=== PATIENT | male | born 1960 | race Caucasian/White ===

== ENCOUNTER 2018-01-03 09:57 | Inpatient (IN) | payer OTHER ==
[~2018-01-03] VITALS: Ht 180.3 cm; Wt 101.4 kg
[2018-01-03 10:36] LABS: BASOPHILS # (AUTO) 0.02 x10^3/uL (0-0.1); BASOPHILS % (AUTO) 0 % (0-1); EOSINOPHILS % (AUTO) 0 % (1-7); LYMPHOCYTES # (AUTO) 1.17 x10^3/uL (1-3.4); LYMPHOCYTES % (AUTO) 17 % (22-44); MD NO; MEAN CORPUSCULAR HEMOGLOBIN 30.3 pg (27.5-34.5); MEAN CORPUSCULAR HGB CONC 33.8 g/dL (33.2-36.2); MEAN CORPUSCULAR VOLUME 89.8 fL (81-97); MEAN PLATELET VOLUME 7.9 fL (7.4-10.4); MONOCYTES % (AUTO) 3 % (2-9); NEUTROPHILS # (AUTO) 5.33 x10^3/uL (1.8-6.8); NEUTROPHILS % (AUTO) 79 % (42-75); PLATELET COUNT 173 x10^3/uL (130-400); RED BLOOD COUNT 5.09 x10^6/uL (4.38-5.82); RED CELL DISTRIBUTION WIDTH 14.4 % (9.4-14.8)
[2018-01-03 10:49] LABS: ALBUMIN 2.8 g/dL (3.4-5.0); ANION GAP 14 mmol/L (5-15); CALCIUM 8.3 mg/dL (8.5-10.1); CHLORIDE 97 mmol/L (98-107)
[2018-01-03 10:52] LABS: ALANINE AMINOTRANSFERASE 29 U/L (12-78); ALKALINE PHOSPHATASE 166 U/L (45-117); BILIRUBIN,TOTAL 0.7 mg/dL (0.2-1.0); CREATININE 0.85 mg/dL (0.7-1.3)
[2018-01-03] MEDS ORDERED: SODIUM CHLORIDE 0.9% 1,000ML IVBOLUS ONE (11:30)
[2018-01-03] MEDS ORDERED: CEFTRIAXONE PMX 1GM/50ML 50 ML IVPB ONE (11:30)
[2018-01-03] MEDS ORDERED: CEFTRIAXONE PMX 1GM/50ML 50 ML ONE (11:53)
[2018-01-03 11:59] LABS: MICROSCOPIC INDICATED
[2018-01-03 12:01] LABS: CULTURE INDICATED? NO
[2018-01-03] MEDS ORDERED: ONDANSETRON 2MG/ML, 2ML IVPush PRN (12:30)
[2018-01-03] MEDS ORDERED: DOCUSATE 100 MG CAPSULE PO PRN (12:30)
[2018-01-03] MEDS ORDERED: DEXTROSE 50%, 50ML SYRINGE IVPush PRN (12:30)
[2018-01-03] MEDS ORDERED: BISACODYL 10 MG SUPP PR PRN (12:30)
[2018-01-03] MEDS ORDERED: ENALAPRILAT 1.25 MG/ML, 2ML IVPush PRN (12:30)
[2018-01-03] MEDS ORDERED: GLUCAGON 1 MG IM PRN (12:30)
[2018-01-03] MEDS ORDERED: DEXTROSE 4 GM TAB.CHEW PO PRN (12:30)
[2018-01-03] MEDS ORDERED: POLYETHYLENE GLYCOL 17 GM PACKET PO PRN (12:30)
[2018-01-03 13:00] VITALS: BP 126/76
[2018-01-03 13:02] LABS: HEMOGLOBIN A1C 13.9 % (4.2-6.3)
[2018-01-03] MEDS: NS + 20MEQ KCL 1,000 ML IV SCH (13:36)
[2018-01-03] MEDS: CEFTRIAXONE PMX 1GM/50ML 50 ML IV SCH (13:37)
[2018-01-03] MEDS: ENOXAPARIN 40 MG/0.4 ML SQ SCH (14:00)
[2018-01-03] MEDS: DOXYCYCLINE 100 MG in DEXTROSE 5% 250 ML IV SCH (14:27)
[2018-01-03 15:29] VITALS: BP 126/76
[2018-01-03] MEDS: ACETAMINOPHEN 325 MG TABLET PO PRN (15:55)
[2018-01-03 16:28] LABS: RAPID INFLUENZA A Negative (Negative); RAPID INFLUENZA B Negative (Negative)
[2018-01-03] MEDS: INSULIN LISPRO 100 UNITS/ML, PEN SQ-INSULIN SCH ×2 (16:33→21:31)
[2018-01-03 18:40] VITALS: BP 118/65
[2018-01-03] MEDS: SODIUM CHLORIDE FLUSH 10ML SYR IVF SCH (21:30)
[2018-01-04] MEDS: DOXYCYCLINE 100 MG in DEXTROSE 5% 250 ML IV SCH ×2 (00:54→12:44)
[2018-01-04] MEDS: ACETAMINOPHEN 325 MG TABLET PO PRN (00:55)
[2018-01-04] MEDS: NS + 20MEQ KCL 1,000 ML IV SCH (00:59)
[2018-01-04 01:04] VITALS: BP 126/67
[2018-01-04] MEDS ORDERED: GUAIFENESIN 100 MG/5 ML, 10ML UDC ONE (01:33)
[2018-01-04] MEDS: GUAIFENESIN 100 MG/5 ML, 5ML UDC PO PRN ×2 (01:36→20:37)
[2018-01-04 06:15] LABS: ANION GAP 10 mmol/L (5-15); CALCIUM 7.9 mg/dL (8.5-10.1); CHLORIDE 101 mmol/L (98-107)
[2018-01-04 06:18] LABS: CREATININE 0.66 mg/dL (0.7-1.3)
[2018-01-04 07:57] VITALS: BP 116/69
[2018-01-04] MEDS: POTASSIUM CHLORIDE 20 MEQ TAB.ER.PRT PO SCH ×2 (08:10→17:25)
[2018-01-04] MEDS: INSULIN LISPRO 100 UNITS/ML, PEN SQ-INSULIN SCH ×4 (08:13→20:37)
[2018-01-04] MEDS: SODIUM CHLORIDE FLUSH 10ML SYR IVF SCH ×2 (08:16→20:38)
[2018-01-04] MEDS ORDERED: PNEUMOCOCCAL 23 VACCINE IM-VACC ONE (14:00)
[2018-01-04] MEDS ORDERED: FLU VACC QS2017-18 (36MOS+) UP/PF 0.5 ML IM-VACC ONE (14:00)
[2018-01-04] MEDS: CEFTRIAXONE PMX 1GM/50ML 50 ML IV SCH (14:12)
[2018-01-04] MEDS: ENOXAPARIN 40 MG/0.4 ML SQ SCH (14:19)
[2018-01-04 17:05] VITALS: BP 125/68
[2018-01-04] MEDS ORDERED: INSULIN GLARGINE 100 UNITS/ML, PEN SQ-INSULIN SCH (21:00)
[2018-01-04 21:08] VITALS: BP 128/81
[2018-01-05] MEDS: DOXYCYCLINE 100 MG in DEXTROSE 5% 250 ML IV SCH ×2 (00:49→12:30)
[2018-01-05 02:15] VITALS: BP 115/76
[2018-01-05] MEDS ORDERED: GUAIFENESIN 100 MG/5 ML, 10ML UDC ONE ×2 (05:58→12:12)
[2018-01-05] MEDS: GUAIFENESIN 100 MG/5 ML, 5ML UDC PO PRN (06:00)
[2018-01-05 06:04] LABS: ANION GAP 11 mmol/L (5-15); CALCIUM 7.9 mg/dL (8.5-10.1); CHLORIDE 104 mmol/L (98-107)
[2018-01-05 06:05] LABS: CREATININE 0.58 mg/dL (0.7-1.3)
[2018-01-05 06:18] LABS: BASOPHILS # (AUTO) 0.03 x10^3/uL (0-0.1); BASOPHILS % (AUTO) 1 % (0-1); EOSINOPHILS # (AUTO) 0.01 x10^3/uL (0-0.4); EOSINOPHILS % (AUTO) 0 % (1-7); LYMPHOCYTES % (AUTO) 32 % (22-44); MD NO; MEAN CORPUSCULAR HEMOGLOBIN 30.3 pg (27.5-34.5); MEAN CORPUSCULAR HGB CONC 33.6 g/dL (33.2-36.2); MEAN CORPUSCULAR VOLUME 90.3 fL (81-97); MONOCYTES # (AUTO) 0.57 x10^3/uL (0.2-0.8); MONOCYTES % (AUTO) 11 % (2-9); NEUTROPHILS # (AUTO) 2.81 x10^3/uL (1.8-6.8); NEUTROPHILS % (AUTO) 56 % (42-75); PLATELET COUNT 220 x10^3/uL (130-400); RED BLOOD COUNT 4.66 x10^6/uL (4.38-5.82); RED CELL DISTRIBUTION WIDTH 14.6 % (9.4-14.8)
[2018-01-05 08:00] VITALS: BP 114/70
[2018-01-05] MEDS: INSULIN LISPRO 100 UNITS/ML, PEN SQ-INSULIN SCH ×4 (08:34→20:13)
[2018-01-05] MEDS: POTASSIUM CHLORIDE 20 MEQ TAB.ER.PRT PO SCH (08:37)
[2018-01-05] MEDS: SODIUM CHLORIDE FLUSH 10ML SYR IVF SCH ×2 (08:41→20:20)
[2018-01-05] MEDS: CEFTRIAXONE PMX 1GM/50ML 50 ML IV SCH (13:55)
[2018-01-05] MEDS: ENOXAPARIN 40 MG/0.4 ML SQ SCH (13:56)
[2018-01-05] MEDS ORDERED: GUAIFENESIN 100 MG/5 ML, 10ML UDC PO PRN (15:18)
[2018-01-05 15:30] VITALS: BP 108/68
[2018-01-05] MEDS: ACETAMINOPHEN 325 MG TABLET PO PRN (19:59)
[2018-01-05 20:00] VITALS: BP 118/76
[2018-01-05] MEDS ORDERED: INSULIN GLARGINE 100 UNITS/ML, PEN SQ-INSULIN SCH (21:00)
[2018-01-06] MEDS: DOXYCYCLINE 100 MG in DEXTROSE 5% 250 ML IV SCH (00:24)
[2018-01-06 02:00] VITALS: BP 126/81
[2018-01-06 08:25] VITALS: BP 115/71
[2018-01-06] MEDS: INSULIN LISPRO 100 UNITS/ML, PEN SQ-INSULIN SCH (08:28)
[2018-01-06] MEDS: SODIUM CHLORIDE FLUSH 10ML SYR IVF SCH (08:28)
[2018-01-06] MEDS ORDERED: INSU100I11 SQ-INSULIN (08:50)
[2018-01-06] MEDS ORDERED: INSU100I13 SQ-INSULIN (08:50)
[2018-01-06] MEDS ORDERED: CEFD300C37 PO (08:50)
[2018-01-06] MEDS ORDERED: DOXY100T PO (08:50)
== END 2018-01-06 11:31 | disposition home or self-care (01) | DRG 637 ==
LOC: ED 11:37 → EDIP 11:42 → INTOOBSV 11:42 → 3NE 12:42 → OBSVTOIN 01-04 07:52
PROVIDERS: ADMIT Family Medicine; ATTEND Family Medicine
DX: E11.65 Type 2 diabetes mellitus with hyperglycemia (principal); J18.9 Pneumonia, unspecified organism; E44.0 Moderate protein-calorie malnutrition; E87.2 Acidosis; E87.1 Hypo-osmolality and hyponatremia; E87.6 Hypokalemia; H53.9 Unspecified visual disturbance; Z83.3 Family history of diabetes mellitus; Z68.31 Body mass index [BMI] 31.0-31.9, adult; Z23 Encounter for immunization
CPT/HCPCS: 36415; 71046; 80048; 80053; 81001; 82962; 83036; 83605; 84145; 85025; 87040; 87070; 87205; 87400; 90686; 90732; 96360; G0378; J0696; J1650; J2405; J3480; J7060; J1815; J7030